=== PATIENT | female | born 1995 | race Caucasian/White ===

== ENCOUNTER 2017-01-31 17:32 | Emergency (ER) | payer BC, OTHER ==
[2017-01-31 17:44] VITALS: BP 128/87
--- NOTE | 2017-01-31 18:43 | EDM.PDOC ---
ED HPI GENERAL MEDICAL PROBLEM - General Chief Complaint: Lower Extremity Injury/Pain Stated Complaint: HURT ANKLE Time Seen by Provider: 01/31/17 17:40 Source of Information: Reports: Patient History Limitations: Reports: No Limitations - History of Present Illness INITIAL COMMENTS - FREE TEXT/NARRATIVE: The patient presents with right ankle pain. The pain started tonight at home after work. She does not remember a specific instance when she hurt her ankle. She was on her feet all day. About a year ago she sprained her ankle and had crutches and a walking boot. Onset: Sudden Duration: Hour(s): Location: Reports: Lower Extremity, Right (ankle) Quality: Reports: Sharp Severity: Moderate Improves with: Reports: Immobilization Worsens with: Reports: Movement Associated Symptoms: Reports: No Other Symptoms Right Ankle Pain Score (Numeric/FACES): 10 - Related Data Allergies Allergy/AdvReac Type Severity Reaction Status Date / Time No Known Allergies Allergy Verified 01/31/17 17:44 Home Meds: Home Meds FLUoxetine HCl [Prozac] 20 mg PO DAILY 08/09/15 [History] Hydrocodone/Acetaminophen [Hydrocodon-Acetaminophen 5-325] 1 - 2 each PO Q6HR PRN #20 tablet 01/31/17 [Rx] Past Medical History - Past Health History Medical/Surgical History: Denies Medical/Surgical History Social & Family History - Family History Family Medical History: Noncontributory - Tobacco Use Smoking Status *Q: Never Smoker Second Hand Smoke Exposure: No - Alcohol Use Days Per Week of Alcohol Use: 0 - Recreational Drug Use Recreational Drug Use: No Review of Systems - Review of Systems Review Of Systems: See Below Constitutional: Reports: No Symptoms Eyes: Reports: No Symptoms Ears: Reports: No Symptoms Nose: Reports: No Symptoms Mouth/Throat: Reports: No Symptoms Respiratory: Reports: No Symptoms Cardiovascular: Reports: No Symptoms GI/Abdominal: Reports: No Symptoms Genitourinary: Reports: No Symptoms Musculoskeletal: Reports: Other (Right ankle pain) ED EXAM, GENERAL - Physical Exam Exam: See Below Exam Limited By: No Limitations General Appearance: Alert, No Apparent Distress Ears: Normal External Exam Nose: Normal Inspection Head: Atraumatic, Normocephalic Neck: Normal Inspection Respiratory/Chest: No Respiratory Distress Extremities: Other (Pain upon palpation to the right ankle with mild edema. Good sensation and pulses distally.) Course - Vital Signs Last Recorded V/S: Last Vital Signs Temp 98.5 F 01/31/17 17:42 Pulse 102 H 01/31/17 17:42 Resp 18 01/31/17 17:42 BP 128/87 01/31/17 17:42 Pulse Ox 100 01/31/17 17:42 - Orders/Labs/Meds Orders: Active Orders 24 hr Category Date Time Status Ankle Min 3V Rt [CR] Stat Exams 01/31/17 17:48 Taken - Re-Assessments/Exams Free Text/Narrative Re-Assessment/Exam: 01/31/17 18:41 Her x-ray shows no fracture. She somehow sprained it. I will give her an parker wrap and something for pain. Departure - Departure Time of Disposition: 18:45 Disposition: Home, Self-Care 01 Condition: Good Clinical Impression: Right ankle sprain Qualifiers: Encounter type: initial encounter Involved ligament of ankle: unspecified ligament Qualified Code(s): S93.401A - Sprain of unspecified ligament of right ankle, initial encounter - Discharge Information Prescriptions: Hydrocodone/Acetaminophen [Hydrocodon-Acetaminophen 5-325] 1 - 2 each PO Q6HR PRN #20 tablet PRN Reason: Pain Referrals: Faby Pearson, MIRIAM [Primary Care Provider] - Merlin Lovett DO [Physician] - 1 Week Additional Instructions: Ice your ankle for 15 minutes every other hour while awake for 2 days. Elevate your ankle above your heart as much as you can for a couple days. Take motrin or aleve for the pain. You may also need some hydrocodone for pain. Please return if you are worse. Follow up with Dr Lovett in 1 week. - My Orders Last 24 Hours: My Active Orders 01/31/17 17:48 Ankle Min 3V Rt [CR] Stat - Assessment/Plan Last 24 Hours: My Active Orders 01/31/17 17:48 Ankle Min 3V Rt [CR] Stat
--- NOTE | 2017-02-02 07:59 | CR ---
Right ankle: Four portable views of the right ankle were obtained. Comparison: No prior foot exam or ankle exam. Ankle mortise is symmetric. Mild deformity of the distal fibula is seen which is felt compatible with old injury. Small bony density which is well-corticated and normal variant is seen off the dorsal navicular bone. No acute fracture or other abnormality is appreciated. Impression: 1. Incidental findings. No acute abnormality is appreciated on right ankle exam. Diagnostic code #1
== END 2017-01-31 19:08 | disposition home or self-care (01) ==
LOC: JD.ED 17:32
DX: S93.401A Sprain of unspecified ligament of right ankle, initial encounter (principal); Z79.899 Other long term (current) drug therapy; X58.XXXA Exposure to other specified factors, initial encounter
CPT/HCPCS: 73610-26-RT; 73610-RT; 99283

== ENCOUNTER 2017-02-17 17:46 | Emergency (ER) | payer BC ==
[2017-02-17 18:07] VITALS: BP 139/78
[2017-02-17] MEDS ORDERED: Sodium Chloride 0.9% 1,000 ML IV ONE (18:39)
--- NOTE | 2017-02-17 18:40 | EDM.PDOC ---
ED HPI GENERAL MEDICAL PROBLEM - General Chief Complaint: Abdominal Pain Stated Complaint: POSSIBLE APPENDICITIS PER PATIENT Time Seen by Provider: 02/17/17 18:40 Source of Information: Reports: Patient History Limitations: Reports: No Limitations - History of Present Illness INITIAL COMMENTS - FREE TEXT/NARRATIVE: 21 year old female presents for evaluation and treatment of abdominal pain. Patient reports the pain started today. States it came o gradually. Reports the pain is an 8/10 and is dull and achy in nature. Started in the umbilical area and moved to the right lower quadrant and now into the left lower quadrant and her right lower back. Reports pain is worse with movement and improves while laying flat. Denies any nausea or vomiting. No fevers but states she has felt warm. No dysuria or urinary symptoms. LMP was Jan. 3. Reports she typically has an irregular menstrual cycle/ Reports she has had diarrhea today, 4-5 episodes. Normally struggles with diarrhea and constipation. Has never been worked up for IBS. No melena or hematochezia. No previous surgeries to her abdomen. Last intake was at 16:30, she had dinner. Left Lower Abdomen Pain Score (Numeric/FACES): 8 - Related Data Allergies Allergy/AdvReac Type Severity Reaction Status Date / Time No Known Allergies Allergy Verified 02/17/17 17:56 Home Meds: Home Meds FLUoxetine HCl [Prozac] 20 mg PO DAILY 08/09/15 [History] Hydrocodone/Acetaminophen [Hydrocodon-Acetaminophen 5-325] 1 - 2 each PO Q6HR PRN #20 tablet 01/31/17 [Rx] Past Medical History - Past Health History Medical/Surgical History: Denies Medical/Surgical History HEENT History: Reports: Impaired Vision Respiratory History: Reports: Asthma Gastrointestinal History: Reports: Chronic Diarrhea 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 Social & Family History - Family History Family Medical History: Noncontributory Cardiac: Reports: CAD Endocrine/Metabolic: Reports: Diabetes, type II Oncologic: Reports: Breast, Cervix - Tobacco Use Smoking Status *Q: Former Smoker Used Tobacco, but Quit: Yes Month Tobacco Last Used: 2013 Second Hand Smoke Exposure: No - Caffeine Use Caffeine Use: Reports: Soda Other Caffeine Use: 2-4 cans a day - Alcohol Use Days Per Week of Alcohol Use: 0 - Recreational Drug Use Recreational Drug Use: No ED ROS GENERAL - Review of Systems Review Of Systems: See Below Constitutional: Denies: Fever (has felt warm), Decreased Appetite GI/Abdominal: Reports: Abdominal Pain (lower abdomen), Diarrhea (4-5 episode today), Vomiting. Denies: Decreased Appetite, Hematochezia, Melena, Nausea : Reports: Other (LMP 11--17). Denies: Dysuria Musculoskeletal: Reports: Back Pain (right low back) ED EXAM, GI/ABD - Physical Exam Exam: See Below Exam Limited By: No Limitations General Appearance: Alert, WD/WN, No Apparent Distress Throat/Mouth: Normal Inspection Respiratory/Chest: No Respiratory Distress, Lungs Clear, Normal Breath Sounds Cardiovascular: Normal Peripheral Pulses, Regular Rate, Rhythm, No Murmur GI/Abdominal Exam: Normal Bowel Sounds, Soft, Tender (+ mcburnies point tenderness), Other (reports pain with psosas and obturator testing). No: Rigid , Rebound Neurological: Alert, Oriented, Normal Cognition Psychiatric: Normal Affect, Normal Mood Skin Exam: Warm, Dry, Normal Color Course - Vital Signs Last Recorded V/S: Last Vital Signs Temp 36.5 C 02/17/17 17:59 Pulse 114 H 02/17/17 17:59 Resp 18 02/17/17 17:59 BP 139/78 02/17/17 17:59 Pulse Ox 99 02/17/17 17:59 Orthostatic Blood Pressure [ 116/71 Standing] Orthostatic Blood Pressure [ 118/78 Sitting] Orthostatic Blood Pressure [ 120/72 Supine] - Orders/Labs/Meds Labs: Laboratory Tests 02/17/17 02/17/17 02/17/17 Range/Units 18:39 18:39 18:39 WBC 11.89 H (3.98-10.04) K/mm3 RBC 4.90 (3.98-5.22) M/mm3 Hgb 14.8 (11.2-15.7) gm/L Hct 43.4 (34.1-44.9) % MCV 88.6 (79.4-94.8) fl MCH 30.2 (25.6-32.2) pg MCHC 34.1 (32.2-35.5) g/dl RDW Std Deviation 40.6 (36.4-46.3) fL Plt Count 327 (182-369) K/mm3 MPV 9.2 L (9.4-12.3) fl Neutrophils % (Manual) 73 H (40-60) % Band Neutrophils % 0 (0-10) % Lymphocytes % (Manual) 17 L (20-40) % Atypical Lymphs % 0 % Monocytes % (Manual) 8 (2-10) % Eosinophils % (Manual) 2 (0.7-5.8) % Basophils % (Manual) 0 L (0.1-1.2) Platelet Estimate Adequate Plt Morphology Comment Normal RBC Morph Comment Normal Sodium 137 (136-145) mEq/L Potassium 3.7 (3.5-5.1) mEq/L Chloride 105 (98-107) mEq/L Carbon Dioxide 25 (21-32) mEq/L Anion Gap 10.7 (5-15) BUN 8 (7-18) mg/dL Creatinine 0.8 (0.55-1.02) mg/dL Est Cr Clr Drug Dosing 79.23 mL/min Estimated GFR (MDRD) > 60 (>60) mL/min BUN/Creatinine Ratio 10.0 L (14-18) Glucose 114 H (74-106) mg/dL Calcium 9.8 (8.5-10.1) mg/dL Total Bilirubin 0.3 (0.2-1.0) mg/dL AST 17 (15-37) U/L ALT 34 (14-59) U/L Alkaline Phosphatase 72 (46-116) U/L C-Reactive Protein < 0.2 (<1.0) mg/dL Total Protein 7.8 (6.4-8.2) g/dl Albumin 3.7 (3.4-5.0) g/dl Globulin 4.1 gm/dL Albumin/Globulin Ratio 0.9 L (1-2) HCG, Qual Negative (NEGATIVE) Urine Color (Yellow) Urine Appearance (Clear) Urine pH (5.0-8.0) Ur Specific [place] (1.005-1.030) Urine Protein (Negative) Urine Glucose (UA) (Negative) Urine Ketones (Negative) Urine Occult Blood (Negative) Urine Nitrite (Negative) Urine Bilirubin (Negative) Urine Urobilinogen (0.2-1.0) Ur Leukocyte Esterase (Negative) Urine RBC (0-5) /hpf Urine WBC (0-5) /hpf Ur Epithelial Cells (0-5) /hpf Urine Bacteria (FEW) /hpf Urine Mucus (FEW) /hpf 02/17/17 Range/Units 18:51 WBC (3.98-10.04) K/mm3 RBC (3.98-5.22) M/mm3 Hgb (11.2-15.7) gm/L Hct (34.1-44.9) % MCV (79.4-94.8) fl MCH (25.6-32.2) pg MCHC (32.2-35.5) g/dl RDW Std Deviation (36.4-46.3) fL Plt Count (182-369) K/mm3 MPV (9.4-12.3) fl Neutrophils % (Manual) (40-60) % Band Neutrophils % (0-10) % Lymphocytes % (Manual) (20-40) % Atypical Lymphs % % Monocytes % (Manual) (2-10) % Eosinophils % (Manual) (0.7-5.8) % Basophils % (Manual) (0.1-1.2) Platelet Estimate Plt Morphology Comment RBC Morph Comment Sodium (136-145) mEq/L Potassium (3.5-5.1) mEq/L Chloride (98-107) mEq/L Carbon Dioxide (21-32) mEq/L Anion Gap (5-15) BUN (7-18) mg/dL Creatinine (0.55-1.02) mg/dL Est Cr Clr Drug Dosing mL/min Estimated GFR (MDRD) (>60) mL/min BUN/Creatinine Ratio (14-18) Glucose (74-106) mg/dL Calcium (8.5-10.1) mg/dL Total Bilirubin (0.2-1.0) mg/dL AST (15-37) U/L ALT (14-59) U/L Alkaline Phosphatase (46-116) U/L C-Reactive Protein (<1.0) mg/dL Total Protein (6.4-8.2) g/dl Albumin (3.4-5.0) g/dl Globulin gm/dL Albumin/Globulin Ratio (1-2) HCG, Qual (NEGATIVE) Urine Color Yellow (Yellow) Urine Appearance Clear (Clear) Urine pH 6.0 (5.0-8.0) Ur Specific [place] 1.010 (1.005-1.030) Urine Protein Negative (Negative) Urine Glucose (UA) Negative (Negative) Urine Ketones Negative (Negative) Urine Occult Blood Negative (Negative) Urine Nitrite Negative (Negative) Urine Bilirubin Negative (Negative) Urine Urobilinogen 0.2 (0.2-1.0) Ur Leukocyte Esterase Negative (Negative) Urine RBC 0-5 (0-5) /hpf Urine WBC 0-5 (0-5) /hpf Ur Epithelial Cells 0-5 (0-5) /hpf Urine Bacteria Not seen (FEW) /hpf Urine Mucus Not seen (FEW) /hpf Meds: Medications Discontinued Medications Generic Name Dose Route Start Last Admin Trade Name Freq PRN Reason Stop Dose Admin Diatrizoate Meglum/Diatrizoate Sod 90 ml 02/17/17 22:06 02/17/17 22:28 Gastrografin 37% PO 02/17/17 22:07 90 ml ONETIME ONE Administration Sodium Chloride 1,000 mls @ 999 mls/hr 02/17/17 18:39 02/17/17 19:03 Normal Saline IV 02/17/17 19:39 999 mls/hr ONETIME ONE Administration Iopamidol 125 ml 02/17/17 22:06 02/17/17 22:28 Isovue-300 (61%) IVPUSH 02/17/17 22:07 125 ml ONETIME ONE Administration Sodium Chloride 10 ml 02/17/17 18:39 02/17/17 22:29 Saline Flush FLUSH 10 ml ASDIRECTED PRN Administration Keep Vein Open - Radiology Interpretation Free Text/Narrative:: CT of the abdomen and pelvis without contrast impression per [facility]: NO acute findings - Re-Assessments/Exams Free Text/Narrative Re-Assessment/Exam: 02/17/17 19:57 Labs returned. HCG is negative. WBC is slightly elevated. Will obtain CT of the abdomen and pelvis to rule out appy. 02/17/17 23:[address] results with the patient. Abdominal pain is nearly resolved. Unclear etiology at this point, likely gas pains. Will discharge home with instructions to follow-up with PCP. Departure - Departure Time of Disposition: 23:06 Disposition: Home, Self-Care 01 Condition: Good Clinical Impression: Abdominal pain - Discharge Information Instructions: Abdominal Pain, Adult, [id number] Referrals: Faby Pearson PHYSICAL TRAINER [Primary Care Provider] - Forms: ED Department Discharge Additional Instructions: [id number] Tylenol or Motrin as needed for pain relief Recommend starting a probiotic. These are available [id number]. Drink clear fluids and a bland diet. You may advance to a normal diet as tolerated. Follow-up with your primary care provider in one week for recheck of your symptoms. Please return to the ER if your symptoms change or worsen.
[2017-02-17] MEDS: Sodium Chloride 0.9% 10 ML Syringe FLUSH PRN ×2 (19:03→22:29)
[2017-02-17] MEDS ORDERED: Diatrizoate Meglumine/Diatrizoate Sodium 37% 120 ML Bottle PO ONE (22:06)
[2017-02-17] MEDS ORDERED: Iopamidol 612 MG/ML 150 ML Bottle IVPUSH ONE (22:06)
--- NOTE | 2017-02-18 08:43 | CT ---
CT abdomen and pelvis Technique: Multiple axial sections were obtained from above the dome of the diaphragm inferiorly through the pubic symphysis. Intravenous and oral contrast was utilized. Delayed images were obtained to the bladder. Comparison: No prior abdomen or pelvis CT. Findings: Visualized lung bases show nothing acute. Liver shows no focal parenchymal abnormality. Gallbladder contains no calcified gallstones. Spleen appears within normal limits. Adrenal glands are unremarkable. Kidneys show symmetric contrast enhancement without hydronephrosis or mass. Pancreas is within normal limits. Aorta shows no aneurysmal dilatation. No retroperitoneal adenopathy or mesenteric abnormalities are seen. Appendix is seen which appears normal. No pelvic mass or adenopathy is seen. Small dominant follicle noted within the left ovary. No free fluid or inflammatory changes seen. Delayed images show contrast within the distal ureters and within the bladder. Bone window settings were reviewed which appear within normal limits for the patient's age. Impression: 1. No abnormality is identified on CT study of the abdomen and pelvis. Diagnostic code #1 Agree with preliminary report issued by [facility] ([facility] preliminary report dictated on 02/17/17, 11:45 PM Central Time)
== END 2017-02-17 23:13 | disposition home or self-care (01) ==
LOC: JD.ED 17:46
DX: R10.33 Periumbilical pain (principal); R10.32 Left lower quadrant pain; J45.909 Unspecified asthma, uncomplicated; Z87.891 Personal history of nicotine dependence
CPT/HCPCS: 36415; 74177; 80053; 81001; 84703; 85025; 86140; 96360; 99284; J7040; J7050; Q9963; Q9967

== ENCOUNTER 2017-08-24 19:04 | Emergency (ER) | payer SELFPAY ==
[2017-08-24] MEDS ORDERED: Penicillin V Potassium 500 MG Tab PO ONE (19:33)
--- NOTE | 2017-08-24 19:37 | EDM.PDOC ---
ED HPI GENERAL MEDICAL PROBLEM - General Chief Complaint: ENT Problem Stated Complaint: TOOTH PAIN POSSIBLE TMJ Time Seen by Provider: 08/24/17 19:25 Source of Information: Reports: Patient History Limitations: Reports: No Limitations - History of Present Illness INITIAL COMMENTS - FREE TEXT/NARRATIVE: Patient is a 21-year-old female presents ED complaining of right lower jaw pain. She states this started approximately a few days ago and has progressively gotten worse. Pain is worsened with chewing on affected side. She has a history of poor dentition and multiple fillings to teeth affected on that side. She denies any swelling, fever, nausea vomiting, difficulty swallowing, sore throat, or any additional complaints. 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 ED EXAM, ENT - Physical Exam Exam: See Below Exam Limited By: No Limitations General Appearance: Alert, WD/WN, No Apparent Distress Ears: Hearing Grossly Normal Nose: Normal Inspection Mouth/Throat: Normal Oropharynx, Dental Tenderness, Other (poor dentition throughout. She has no gumline swelling to the 30-32 teeth. Pain with palpation along the lateral border of the affected teeth. No swelling to face noted. ). No: Dental Trauma, Drooling, Dry Mucous Membrane, Muffled Voice, Pharyngeal Erythema, Trismus, Uvular Deviation Head: Atraumatic, Normocephalic Neck: Normal Inspection, Supple Respiratory/Chest: No Respiratory Distress, Lungs Clear, Normal Breath Sounds, No Accessory Muscle Use, Chest Non-Tender Cardiovascular: Normal Peripheral Pulses, Regular Rate, Rhythm Extremities: Normal Inspection Neurological: Alert, Oriented, CN II-XII Intact, Normal Cognition, No Motor/ Sensory Deficits Psychiatric: Normal Affect, Normal Mood Skin: Warm, Dry, Intact, Normal Color, No Rash Course - Vital Signs Last Recorded V/S: Last Vital Signs Temp 97.3 F 08/24/17 19:50 Pulse 78 08/24/17 19:50 Resp 16 08/24/17 19:50 BP 122/76 08/24/17 19:50 Pulse Ox 100 08/24/17 19:50 - Orders/Labs/Meds Meds: Medications Discontinued Medications Generic Name Dose Route Start Last Admin Trade Name Joao PRN Reason Stop Dose Admin Penicillin V Potassium 500 mg 08/24/17 19:33 08/24/17 19:43 Veetids PO 08/24/17 19:34 500 mg ONETIME ONE Administration - Re-Assessments/Exams Free Text/Narrative Re-Assessment/Exam: Pain noted along the right lower outer gum line with no abscess present. Due to poor dentition suspect she has a brewing infection. Ordered pen vk 500mg PO. Discharge instructions as documented. Departure - Departure Time of Disposition: 19:35 Disposition: Home, Self-Care 01 Condition: Good Clinical Impression: Dental infection, Dental caries - Discharge Information Prescriptions: Penicillin V Potassium [Veetids] 500 mg PO Q6H #40 tab Instructions: Dental Abscess, [id number] Referrals: Faby Pearson, MANAGER REGISTRATION [Primary Care Provider] - Forms: ED Department Discharge Additional Instructions: Take the full course of the antibiotic as prescribed. Utilize tylenol and ibuprofen in alternating fashion for pain. Make an appt with Dentist for definitive therapy. Return to the E.D. if you develop any new or worsening symptoms.
[2017-08-24 19:54] VITALS: BP 122/76
== END 2017-08-24 19:52 | disposition home or self-care (01) ==
LOC: JD.ED 19:04
DX: K04.7 Periapical abscess without sinus (principal); K02.9 Dental caries, unspecified; F41.9 Anxiety disorder, unspecified; F32.9 Major depressive disorder, single episode, unspecified; Z87.891 Personal history of nicotine dependence
CPT/HCPCS: 99283; A9270

== ENCOUNTER 2019-11-09 18:58 | Emergency (ER) | payer MEDICAID ==
[2019-11-09 19:13] VITALS: BP 120/84; PULSE 89
[2019-11-09] MEDS ORDERED: Sodium Chloride 0.9% 10 ML Syringe FLUSH PRN (19:34)
[2019-11-09] MEDS ORDERED: Sodium Chloride 0.9% 1,000 ML IV STA (19:34)
[2019-11-09] MEDS ORDERED: Ondansetron 4 MG/2 ML SDV IVPUSH ONE (19:34)
[2019-11-09] MEDS ORDERED: HYDROmorphone 1 MG/ML Syringe IVPUSH ONE (19:35)
--- NOTE | 2019-11-09 20:50 | EDM.PDOC ---
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 She said she has also gained weight. She was sent over from the walk in clinic. She denies being . She says she has not had intercourse for a month. She has no fever, chills, cough, congestion, runny nose, chest pain or shortness of breath. She does have pain in her lower abdomen and pelvis. She has no vaginal discharge or bleeding. She is . She says she has not had a period in over a year. Onset: Gradual Duration: Week(s): (4) Location: Reports: Abdomen, Pelvis Quality: Reports: Sharp Severity: Moderate Improves with: Reports: None Worsens with: Reports: None Associated Symptoms: Reports: No Other Symptoms Pelvic Pain Score (Numeric/FACES): 8 - Related Data Allergies Allergy/AdvReac Type Severity Reaction Status Date / Time No Known Allergies Allergy Verified 11/09/19 19:13 Home Meds: Home Meds . 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 Cardiovascular Surgical History: Reports: None GI Surgical History: Reports: None Social & Family History - Family History Family Medical History: Noncontributory Cardiac: Reports: CAD Endocrine/Metabolic: Reports: Diabetes, type II Oncologic: Reports: Breast, Cervix - Tobacco Use Smoking Status *Q: Never Smoker - Caffeine Use Caffeine Use: Reports: Soda Other Caffeine Use: 2-4 cans a day ED ROS GENERAL - Review of Systems Review Of Systems: See Below Constitutional: Reports: No Symptoms HEENT: Reports: No Symptoms Respiratory: Reports: No Symptoms Cardiovascular: Reports: No Symptoms Endocrine: Reports: No Symptoms GI/Abdominal: Reports: Abdominal Pain : Reports: Other (Pelvic pain) Musculoskeletal: Reports: No Symptoms ED EXAM, GI/ABD - Physical Exam Exam: See Below Exam Limited By: No Limitations General Appearance: Alert, No Apparent Distress Ears: Normal External Exam Nose: Normal Inspection Head: Atraumatic, Normocephalic Neck: Normal Inspection Respiratory/Chest: No Respiratory Distress, Lungs Clear, Normal Breath Sounds Cardiovascular: Regular Rate, Rhythm, No Edema, No Murmur GI/Abdominal Exam: Soft, Other (Mass noted in the abdomen). No: Tender Course - Vital Signs Last Recorded V/S: Last Vital Signs Temp 97.8 F 11/09/19 19:11 Pulse 89 11/09/19 19:11 Resp 16 11/09/19 19:11 BP 120/84 11/09/19 19:11 Pulse Ox 97 11/09/19 19:11 - Orders/Labs/Meds Orders: Active Orders 24 hr Category Date Time Status Peripheral IV Care [RC] . DIRECTED Care 11/09/19 19:34 Active COMPREHENSIVE METABOLIC PN,CMP [CHEM] Stat Lab 11/09/19 19:45 Results LIPASE [CHEM] Stat Lab 11/09/19 19:45 Results Sodium Chloride 0.9% [Saline Flush] Med 11/09/19 19:34 Active 10 ml FLUSH ASDIRECTED PRN ED Antiemetic Medication Reflex [OM.PC] Stat Oth 11/09/19 19:34 Ordered Peripheral IV Insertion Adult [OM.PC] Stat Oth 11/09/19 19:34 Ordered Medication Orders Sodium Chloride (Saline Flush) 10 ml FLUSH ASDIRECTED PRN PRN Reason: Keep Vein Open Last Admin: 11/09/19 19:49 Dose: 10 ml Documented by: ALEX Labs: Laboratory Tests 11/09/19 11/09/19 11/09/19 Range/Units 19:45 19:45 19:45 WBC 9.66 (3.98-10.04) K/mm3 RBC 3.72 L (3.98-5.22) M/mm3 Hgb 10.4 L D (11.2-15.7) gm/dl Hct 33.0 L (34.1-44.9) % MCV 88.7 (79.4-94.8) fl MCH 28.0 (25.6-32.2) pg MCHC 31.5 L (32.2-35.5) g/dl RDW Std Deviation 45.7 (36.4-46.3) fL Plt Count 241 D (182-369) K/mm3 MPV 8.9 L (9.4-12.3) fl Neut % (Auto) 79.5 H (34.0-71.1) % Lymph % (Auto) 10.6 L (19.3-51.7) % [place] % (Auto) 9.5 (4.7-12.5) % Eos % (Auto) 0.2 L (0.7-5.8) Baso % (Auto) 0.1 (0.1-1.2) % Neut # (Auto) 7.68 H (1.56-6.13) K/mm3 Lymph # (Auto) 1.02 L (1.18-3.74) K/mm3 [place] # (Auto) 0.92 H (0.24-0.36) K/mm3 Eos # (Auto) 0.02 L (0.04-0.36) K/mm3 Baso # (Auto) 0.01 (0.01-0.08) K/mm3 Sodium 136 (136-145) mEq/L Potassium 3.5 (3.5-5.1) mEq/L Chloride 104 (98-107) mEq/L Carbon Dioxide 19 L (21-32) mEq/L Anion Gap 16.5 H (5-15) BUN 10 (7-18) mg/dL Creatinine 0.7 (0.55-1.02) mg/dL Est Cr Clr Drug Dosing 92.71 mL/min Estimated GFR (MDRD) > 60 (>60) mL/min BUN/Creatinine Ratio 14.3 (14-18) Glucose 79 (74-106) mg/dL Calcium 8.5 (8.5-10.1) mg/dL Total Bilirubin 0.4 (0.2-1.0) mg/dL AST 10 L (15-37) U/L ALT 9 L (14-59) U/L Alkaline Phosphatase 143 H (46-116) U/L Total Protein 6.8 (6.4-8.2) g/dl Albumin 2.4 L (3.4-5.0) g/dl Globulin 4.4 gm/dL Albumin/Globulin Ratio 0.6 L (1-2) HCG, Qual Positive H (NEGATIVE) Urine Color (Yellow) Urine Appearance (Clear) Urine pH (5.0-8.0) Ur Specific [place] (1.005-1.030) Urine Protein (Negative) Urine Glucose (UA) (Negative) Urine Ketones (Negative) Urine Occult Blood (Negative) Urine Nitrite (Negative) Urine Bilirubin (Negative) Urine Urobilinogen (0.2-1.0) Ur Leukocyte Esterase (Negative) Urine RBC (0-5) /hpf Urine WBC (0-5) /hpf Ur Squamous Epith Cells (0-5) /hpf Urine Bacteria (FEW) /hpf Urine Mucus (FEW) /hpf 11/09/19 Range/Units 19:46 WBC (3.98-10.04) K/mm3 RBC (3.98-5.22) M/mm3 Hgb (11.2-15.7) gm/dl Hct (34.1-44.9) % MCV (79.4-94.8) fl MCH (25.6-32.2) pg MCHC (32.2-35.5) g/dl RDW Std Deviation (36.4-46.3) fL Plt Count (182-369) K/mm3 MPV (9.4-12.3) fl Neut % (Auto) (34.0-71.1) % Lymph % (Auto) (19.3-51.7) % [place] % (Auto) (4.7-12.5) % Eos % (Auto) (0.7-5.8) Baso % (Auto) (0.1-1.2) % Neut # (Auto) (1.56-6.13) K/mm3 Lymph # (Auto) (1.18-3.74) K/mm3 [place] # (Auto) (0.24-0.36) K/mm3 Eos # (Auto) (0.04-0.36) K/mm3 Baso # (Auto) (0.01-0.08) K/mm3 Sodium (136-145) mEq/L Potassium (3.5-5.1) mEq/L Chloride (98-107) mEq/L Carbon Dioxide (21-32) mEq/L Anion Gap (5-15) BUN (7-18) mg/dL Creatinine (0.55-1.02) mg/dL Est Cr Clr Drug Dosing mL/min Estimated GFR (MDRD) (>60) mL/min BUN/Creatinine Ratio (14-18) Glucose (74-106) mg/dL Calcium (8.5-10.1) mg/dL Total Bilirubin (0.2-1.0) mg/dL AST (15-37) U/L ALT (14-59) U/L Alkaline Phosphatase (46-116) U/L Total Protein (6.4-8.2) g/dl Albumin (3.4-5.0) g/dl Globulin gm/dL Albumin/Globulin Ratio (1-2) HCG, Qual (NEGATIVE) Urine Color Light yellow (Yellow) Urine Appearance Clear (Clear) Urine pH 7.0 (5.0-8.0) Ur Specific [place] 1.015 (1.005-1.030) Urine Protein Negative (Negative) Urine Glucose (UA) Negative (Negative) Urine Ketones Negative (Negative) Urine Occult Blood Negative (Negative) Urine Nitrite Negative (Negative) Urine Bilirubin Negative (Negative) Urine Urobilinogen 0.2 (0.2-1.0) Ur Leukocyte Esterase Trace H (Negative) Urine RBC 0-5 (0-5) /hpf Urine WBC 5-10 H (0-5) /hpf Ur Squamous Epith Cells 20-30 H (0-5) /hpf Urine Bacteria Rare (FEW) /hpf Urine Mucus Not seen (FEW) /hpf Meds: Medications Generic Name Dose Route Start Last Admin Trade Name Freq PRN Reason Stop Dose Admin Sodium Chloride 10 ml 11/09/19 19:34 11/09/19 19:49 Saline Flush FLUSH 10 ml ASDIRECTED PRN Administration Keep Vein Open Discontinued Medications Generic Name Dose Route Start Last Admin Trade Name Freq PRN Reason Stop Dose Admin Hydromorphone HCl 1 mg 11/09/19 19:35 11/09/19 19:48 Dilaudid IVPUSH 11/09/19 19:36 1 mg ONETIME ONE Administration Sodium Chloride 1,000 mls @ 1,000 mls/hr 11/09/19 19:34 11/09/19 19:47 Normal Saline IV 11/09/19 20:33 1,000 mls/hr .BOLUS STA Administration Ondansetron HCl 4 mg 11/09/19 19:34 11/09/19 19:47 Zofran IVPUSH 11/09/19 19:35 4 mg ONETIME ONE Administration - Re-Assessments/Exams Free Text/Narrative Re-Assessment/Exam: 11/09/19 20:49 I ordered an IV NS 1L bolus, dilaudid 1mg IV, labs, UA and an US. Her Hgb was a little low at 10.4. Her alk phos was elevated at 143. Her HCG was positive. The [employer] tech came to tell me she will need the change the order for the US. The patient is 36 weeks gestation with a heart rate of 126. I called Dr Gunter and she would like to see the patient tomorrow. Her office will contact her. Departure - Departure Time of Disposition: 21:15 Disposition: Home, Self-Care 01 Condition: Good Clinical Impression: Qualifiers: Weeks of gestation: 36 weeks Qualified Code(s): Z3A.36 - 36 weeks gestation of - Discharge Information *PRESCRIPTION DRUG MONITORING PROGRAM REVIEWED*: Not Applicable *COPY OF PRESCRIPTION DRUG MONITORING REPORT IN PATIENT GEOFFREY: Not Applicable Referrals: Thi Cee PA-C [Primary Care Provider] - Mona Gunter MD [Physician] - 1 Day Forms: ED Department Discharge Additional Instructions: Follow up with Dr Gunter tomorrow. If you do not hear from her office by noon, call her office. Please return if you have more pain or any vaginal discharge or bleeding. Sepsis Event Note (ED) - Evaluation Sepsis Screening Result: No Definite Risk - Focused Exam Vital Signs: Vital Signs Temp Pulse Resp BP Pulse Ox 11/09/19 19:11 97.8 F 89 16 120/84 97 - My Orders Last 24 Hours: My Active Orders 11/09/19 19:34 Peripheral IV Care [RC] . DIRECTED Sodium Chloride 0.9% [Saline Flush] 10 ml FLUSH ASDIRECTED PRN ED Antiemetic Medication Reflex [OM.PC] Stat Peripheral IV Insertion Adult [OM.PC] Stat 11/09/19 19:45 COMPREHENSIVE METABOLIC PN,CMP [CHEM] Stat LIPASE [CHEM] Stat - Assessment/Plan Last 24 Hours: My Active Orders 11/09/19 19:34 Peripheral IV Care [RC] . DIRECTED Sodium Chloride 0.9% [Saline Flush] 10 ml FLUSH ASDIRECTED PRN ED Antiemetic Medication Reflex [OM.PC] Stat Peripheral IV Insertion Adult [OM.PC] Stat 11/09/19 19:45 COMPREHENSIVE METABOLIC PN,CMP [CHEM] Stat LIPASE [CHEM] Stat
--- NOTE | 2019-11-09 21:03 | US ---
Limited obstetrical ultrasound: Multiple real-time images were obtained transabdominally. Comparison: No previous study for current is available. Findings: Dates: Current ultrasound: [facility] 12/01/19, gestational age 36 weeks 6 days presentation: Cephalic Placenta: Fundal and anterior with no findings of placenta previa Amniotic fluid: LINNEA 10.83 cm Measurements: BPD: 9.13 cm - 37 weeks 0 days Head circumference: 32.50 cm - 36 weeks 6 days Abdominal circumference: 32.84 cm - 36 weeks 5 days Femur length: 7.20 cm - 36 weeks 6 days Estimated weight: 3040 g (6 lbs. 11 oz.) Heart rate: 126 BPM Cervical length: 2.94 cm Impression: 1. Single intrauterine fetus currently cephalic in presentation. Dates as noted above. 2. No complicating abnormality is appreciated on this ultrasound exam. Note made that this was not an anatomic study. Diagnostic code #1 Study was dictated in MDT
== END 2019-11-09 21:23 | disposition home or self-care (01) ==
LOC: JD.ED 18:58
DX: O99.89 Other specified diseases and conditions complicating pregnancy, childbirth and the puerperium (principal); R10.2 Pelvic and perineal pain; O99.513 Diseases of the respiratory system complicating pregnancy, third trimester; J45.909 Unspecified asthma, uncomplicated; Z3A.36 36 weeks gestation of pregnancy
CPT/HCPCS: 36415; 76815; 80053; 81001; 83690; 84703; 85025; 96361; 96374; 96375; 99284; J1170; J2405; J7030

== ENCOUNTER 2019-11-10 01:15 | Inpatient (IN) | payer MEDICAID ==
[2019-11-10] MEDS ORDERED: Ondansetron 4 MG/2 ML SDV IVPUSH PRN (01:36)
[2019-11-10] MEDS ORDERED: Lidocaine 1% 50 ML MDV INJECT ONE (01:36)
[2019-11-10] MEDS ORDERED: Sodium Chloride 0.9% 10 ML Syringe FLUSH PRN (01:36)
[2019-11-10] MEDS ORDERED: Acetaminophen 325 MG Tab PO PRN ×2 (01:36→06:48)
[2019-11-10] MEDS ORDERED: Calcium Carbonate 500 MG Tab.Chew PO PRN (01:36)
[2019-11-10] MEDS ORDERED: Nalbuphine 10 MG/ML Syringe IVPUSH PRN (01:36)
[2019-11-10] MEDS ORDERED: Ampicillin 2 GM AdvVial IV ONE (01:45)
[2019-11-10] MEDS ORDERED: Lactated Ringers 1,000 ML IV SCH (01:45)
[2019-11-10] MEDS ORDERED: Oxytocin/Lactated Ringers 10 UNIT/1,000 ML BAG IV SCH (01:45)
[2019-11-10] MEDS ORDERED: Ampicillin 1 GM Vial IV STA (01:47)
[2019-11-10] MEDS ORDERED: Oxytocin 10 Units/1 ML SDV ONE (02:36)
--- NOTE | 2019-11-10 02:40 | PCM.LDHP ---
L&D History of Present Illness - General Date of Service: 11/10/19 Admit Problem/Dx: Patient Status Order with Admit Dx/Problem 11/10/19 01:36 Patient Status [ADT] Routine Admission Diagnosis/Problem Admission Diagnosis/Problem Source of Information: Patient History Limitations: Reports: No Limitations - History of Present Illness Introduction:: Patient is a 24-year-old at 37-0/7 weeks by ultrasound done yesterday who presents for concerns of labor. Patient seen in the emergency department yesterday complaining of pelvic pressure for a month. Did not think she was . Ultrasound done yesterday showed her to be 36 weeks and 6 days. She was supposed to follow-up in clinic today, but sometime after discharge from the ER she started to notice painful contractions. Exam her water broke while si tting bathtub at home. States that her last was notable for growth restriction for which she was induced at 39 weeks. Those delivery notes are available in [facility] as delivery occurred in [place]. She reports having routine care with that . Again had no care up until yesterday in the emergency department for this - Related Data Allergies/Adverse Reactions: Allergies Allergy/AdvReac Type Severity Reaction Status Date / Time No Known Allergies Allergy Verified 11/09/19 19:13 Home Medications: Home Meds . 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 Respiratory History: Reports: Asthma FISHER LAMPARA NET History: Reports: : 2 Para: 1 LMP (Approximate): Psychiatric History: Reports: Anxiety, Depression - Past Surgical History Other Surgical History Comment: No surgical history Social & Family History - Family History Family Medical History: Noncontributory Cardiac: Reports: CAD Endocrine/Metabolic: Reports: Diabetes, type II Oncologic: Reports: Breast, Cervix - Tobacco Use Smoking Status *Q: Never Smoker - Caffeine Use Caffeine Use: Reports: Soda Other Caffeine Use: 2-4 cans a day - Alcohol Use Alcohol Use History: No - Recreational Drug Use Recreational Drug Use: No H&P Review of Systems - Review of Systems: Review Of Systems: See Below General: Reports: No Symptoms Pulmonary: Reports: No Symptoms Cardiovascular: Reports: No Symptoms Gastrointestinal: Reports: Abdominal Pain Genitourinary: Reports: No Symptoms Musculoskeletal: Reports: No Symptoms Psychiatric: Reports: No Symptoms Neurological: Reports: No Symptoms L&D Exam - Exam Exam: See Below - OB Specific Contraction Intensity: Strong Movement: Active Heart Tones: Present Heart Tones per Min: 120 Heart Rate (FHR) Variability: Moderate (6-25 bmp) Presentation: Vertex - Goncalves Score Goncalves Score Cervix Position: Anterior Goncalves Score Consistency: Soft Goncalves Score Effacement: >80% Goncalves Score Dilation: > 5 cm (Patient complete and +1 station on initial exam) Goncalves Score 's Station: +1, +2 Goncalves Score Total: 13 - Exam General: Alert, Oriented, Cooperative Lungs: Clear to Auscultation, Normal Respiratory Effort Cardiovascular: Regular Rate, Regular Rhythm GI/Abdominal Exam: Soft, Non-Tender Genitourinary: Normal external exam Extremities: Normal Inspection Skin: Warm, Dry, Intact - Patient Data Lab Results Last 24 hrs: Laboratory Results - last 24 hr 11/10/19 11/10/19 Range/Units 01:53 02:00 WBC 12.29 H (3.98-10.04) K/mm3 RBC 3.90 L (3.98-5.22) M/mm3 Hgb 11.0 L (11.2-15.7) gm/dl Hct 34.4 (34.1-44.9) % MCV 88.2 (79.4-94.8) fl MCH 28.2 (25.6-32.2) pg MCHC 32.0 L (32.2-35.5) g/dl RDW Std Deviation 45.9 (36.4-46.3) fL Plt Count 232 (182-369) K/mm3 MPV 8.9 L (9.4-12.3) fl Neut % (Auto) 80.4 H (34.0-71.1) % Lymph % (Auto) 11.9 L (19.3-51.7) % [place] % (Auto) 7.4 (4.7-12.5) % Eos % (Auto) 0 L (0.7-5.8) Baso % (Auto) 0.1 (0.1-1.2) % Neut # (Auto) 9.89 H (1.56-6.13) K/mm3 Lymph # (Auto) 1.46 (1.18-3.74) K/mm3 [place] # (Auto) 0.91 H (0.24-0.36) K/mm3 Eos # (Auto) 0.00 L (0.04-0.36) K/mm3 Baso # (Auto) 0.01 (0.01-0.08) K/mm3 COVID-19 (RAFAEL) Negative (NEGATIVE) Result Diagrams: 11/10/19 01:53 - Problem List (1) No care in current SNOMED Code(s): 508880864 ICD Code: O09.30 - SUPRVSN OF PREG W INSUFFICIENT ANTENAT CARE, UNSP TRIMESTER Status: Acute Current Visit: Yes (2) Normal labor SNOMED Code(s): 50336549 ICD Code: O80 - ENCOUNTER FOR FULL-TERM UNCOMPLICATED DELIVERY; Z37.9 - OUTCOME OF DELIVERY, UNSPECIFIED Status: Acute Current Visit: Yes Problem List Initiated/Reviewed/Updated: Yes Orders Last 24hrs: Active Orders 24 hr Category Date Time Status Patient Status [ADT] Routine ADT 11/10/19 01:36 Active Activity as Tolerated [RC] PFP Care 11/10/19 01:36 Active Communication Order [RC] ASDIRECTED Care 11/10/19 01:36 Active Heart Tones [RC] ASDIRECTED Care 11/10/19 01:37 Active Non Stress Test [RC] PER UNIT ROUTINE Care 11/10/19 01:36 Active Notify Provider [RC] PFP Care 11/10/19 01:36 Active Notify Provider [RC] PRN Care 11/10/19 01:36 Active Peripheral IV Care [RC] . DIRECTED Care 11/10/19 01:37 Active Vital Signs [RC] PER UNIT ROUTINE Care 11/10/19 01:36 Active Regular Diet [DIET] Diet 11/10/19 Breakfast Active GROUP B STREP BY PCR [MOLEC] Stat Lab 11/10/19 01:59 Ordered HEPATITIS B SURFACE AG [CHEM] Routine Lab 11/10/19 01:53 Received HIV RAPID SCREEN RLFX COMFIRM [CHEM] Routine Lab 11/10/19 01:53 Received RAPID PLASMA REAGIN,RPR [CHEM] Routine Lab 11/10/19 01:53 Received RUBELLA ANTIBODY IGG [CHEM] Stat Lab 11/10/19 01:53 Received TYPE AND SCREEN [BBK] Routine Lab 11/10/19 01:53 Received Acetaminophen [TylenoL] Med 11/10/19 01:36 Active 650 mg PO Q4H PRN Ampicillin Med 11/10/19 01:47 Stat 200 gm IV NOW STA Calcium Carbonate [Tums] Med 11/10/19 01:36 Active 1,000 mg PO Q2H PRN Lactated Ringers [Ringers, Lactated] 1,000 ml Med 11/10/19 01:45 Active IV ASDIRECTED Nalbuphine [Nubain] Med 11/10/19 01:36 Active 10 mg IVPUSH Q2H PRN Ondansetron [Zofran] Med 11/10/19 01:36 Active 4 mg IVPUSH Q4H PRN Oxytocin/Lactated Ringers [Pitocin in LR 10 Units/1,000 Med 11/10/19 01:45 Active ML] 10 unit in 1,000 ml IV .CONTINUOUS Sodium Chloride 0.9% [Saline Flush] Med 11/10/19 01:36 Active 10 ml FLUSH ASDIRECTED PRN Electronic Heart Tones Ext w TOCO [WOMSER] Oth 11/10/19 01:36 Ordered Routine Electronic Heart Tones Internal [WOMSER] Per Unit Oth 11/10/19 01:36 Ordered Routine Peripheral IV Insertion Adult [OM.PC] Routine Oth 11/10/19 01:36 Ordered Resuscitation Status Routine Resus Stat 11/10/19 01:36 Ordered Medication Orders Acetaminophen (Tylenol) 650 mg PO Q4H PRN PRN Reason: Pain (Mild 1-3) and fever Ampicillin Sodium (Ampicillin) 200 gm IV NOW STA Stop: 11/10/19 01:48 Calcium Carbonate/Glycine (Tums) 1,000 mg PO Q2H PRN PRN Reason: Indigestion Oxytocin/Lactated Ringer's (Pitocin In Lr 10 Units/1,000 Ml) 10 unit in 1,000 mls @ 500 mls/hr IV .CONTINUOUS LOUIE Lactated Ringer's (Ringers, Lactated) 1,000 mls @ 100 mls/hr IV ASDIRECTED LOUIE Nalbuphine HCl (Nubain) 10 mg IVPUSH Q2H PRN PRN Reason: Pain Ondansetron HCl (Zofran) 4 mg IVPUSH Q4H PRN PRN Reason: Nausea/Vomiting Sodium Chloride (Saline Flush) 10 ml FLUSH ASDIRECTED PRN PRN Reason: Keep Vein Open Assessment/Plan Comment:: * Labs including all routine labs to be done * GBS unknown and uncertain gestational age and only had US yesterday. Will give Ampicillin * Already complete. Will plan unmedicated delivery * Anticipate * SW following delivery
[2019-11-10] MEDS ORDERED: Oxytocin 10 Units/1 ML SDV IM ONE (02:41)
--- NOTE | 2019-11-10 02:41 | PCM.DEL ---
L & D Note - General Info Date of Service: 11/10/19 - Delivery Note Labor: Spontaneous Delivery Outcome: Livebirth Delivery Method: Spontaneous Vaginal Delivery-Single Delivery Mode: Spontaneous Presentation: Right Occiput Anterior (ANTONIO) Nuchal Cord: None Anesthesia Type: None Amniotic Fluid Description: Clear Episiotomy Type: None Laceration: None Placenta: Intact, Spontaneous Cord: 3 Vessels Estimated Blood Loss: 100 : Bulb Syringe, Stimulated, Warmed, [place] Used, Warmer Used Delivery Comments (Free Text/Narrative):: Patient found to be complete and began pushing. With maternal pushing effort head delivered from an ANTONIO presentation. No nuchal cord present. With gentle downward traction shoulders and body delivered. Infant placed on maternal abdomen. Cord clamped and cut. Cord blood obtained. Placenta allowed time to separate and expelled intact. Inspection of the perineum showed no lacerations - General Info Date of Service: 11/10/19 - Problem List & Annotations (1) No care in current SNOMED Code(s): 532739799 Code(s): O09.30 - SUPRVSN OF PREG W INSUFFICIENT ANTENAT CARE, UNSP TRIMESTER Status: Acute Current Visit: Yes Qualifiers: Trimester: third trimester Qualified Code(s): O09.33 - Supervision of with insufficient care, third trimester (2) Vaginal delivery SNOMED Code(s): 420731553 Code(s): O80 - ENCOUNTER FOR FULL-TERM UNCOMPLICATED DELIVERY Status: Acute Current Visit: No - Problem List Review Problem List Initiated/Reviewed/Updated: Yes - My Orders Last 24 Hours: My Active Orders 11/10/19 01:36 Patient Status [ADT] Routine Activity as Tolerated [RC] PFP Communication Order [RC] ASDIRECTED Non Stress Test [RC] PER UNIT ROUTINE Notify Provider [RC] PFP Notify Provider [RC] PRN Vital Signs [RC] PER UNIT ROUTINE Acetaminophen [TylenoL] 650 mg PO Q4H PRN Calcium Carbonate [Tums] 1,000 mg PO Q2H PRN Nalbuphine [Nubain] 10 mg IVPUSH Q2H PRN Ondansetron [Zofran] 4 mg IVPUSH Q4H PRN Sodium Chloride 0.9% [Saline Flush] 10 ml FLUSH ASDIRECTED PRN Electronic Heart Tones Ext w TOCO [WOMSER] Routine Electronic Heart Tones Internal [WOMSER] Per Unit Routine Peripheral IV Insertion Adult [OM.PC] Routine Resuscitation Status Routine 11/10/19 01:37 Heart Tones [RC] ASDIRECTED Peripheral IV Care [RC] . DIRECTED 11/10/19 01:45 Lactated Ringers [Ringers, Lactated] 1,000 ml IV ASDIRECTED Oxytocin/Lactated Ringers [Pitocin in LR 10 Units/1,000 ML] 10 unit in 1,000 ml IV .CONTINUOUS 11/10/19 01:47 Ampicillin 200 gm IV NOW STA 11/10/19 01:53 HEPATITIS B SURFACE AG [CHEM] Routine HIV RAPID SCREEN RLFX COMFIRM [CHEM] Routine RAPID PLASMA REAGIN,RPR [CHEM] Routine RUBELLA ANTIBODY IGG [CHEM] Stat TYPE AND SCREEN [BBK] Routine 11/10/19 01:59 GROUP B STREP BY PCR [MOLEC] Stat 11/10/19 Breakfast Regular Diet [DIET] - Assessment Assessment:: PPD#0 - Plan Plan:: * Routine cares * Breast feeding * Will assess labs once all return * Discharge home in 2 days
[2019-11-10] MEDS ORDERED: Methylergonovine 0.2 MG/1 ML Amp IM PRN (03:09)
[2019-11-10] MEDS ORDERED: Benzocaine/Menthol 20%-0.5% Spray 56 GM Canister TOP PRN (06:48)
[2019-11-10] MEDS ORDERED: Witch Hazel Medicated Pads 40/Jar TOP PRN (06:48)
[2019-11-10] MEDS ORDERED: Docusate Sodium 100 MG Cap PO PRN (06:48)
[2019-11-10] MEDS: Ibuprofen 600 MG Tab PO PRN ×2 (14:13→19:56)
--- NOTE | 2019-11-11 06:51 | PCM.PNPP ---
- General Info Date of Service: 11/11/19 Functional Status: Reports: Pain Controlled, Tolerating Diet, Ambulating, Urinating - Review of Systems General: Reports: No Symptoms Pulmonary: Reports: No Symptoms Cardiovascular: Reports: No Symptoms Gastrointestinal: Reports: No Symptoms Genitourinary: Reports: No Symptoms Musculoskeletal: Reports: No Symptoms Neurological: Reports: No Symptoms - Patient Data Vital Signs - Most Recent: Last Vital Signs Temp 36.6 C 11/11/19 03:17 Pulse 82 11/11/19 03:17 Resp 15 11/11/19 03:17 BP 111/59 L 11/11/19 03:17 Pulse Ox 99 11/11/19 03:17 Weight - Most Recent: 66.224 kg I&O - Last 24 Hours: Intake & Output 11/10/19 11/10/19 11/11/19 14:59 22:59 06:59 Intake Total 420 Balance 420 Lab Results - Last 24 Hours: Laboratory Results - last 24 hr 11/10/19 Range/Units 01:53 RPR Non-reactive (NONREACTIVE) Med Orders - Current: Current Medications Acetaminophen (Tylenol) 650 mg PO Q4H PRN PRN Reason: mild pain or fever Benzocaine/Menthol (Dermoplast Pain Relief [place]) 0 gm TOP ASDIRECTED PRN PRN Reason: Perineal Comfort Measure Docusate Sodium (Colace) 100 mg PO BID PRN PRN Reason: Constipation Ibuprofen (Motrin) 600 mg PO Q6H PRN PRN Reason: Mild pain or fever Last Admin: 11/10/19 19:56 Dose: 600 mg Documented by: Methylergonovine Maleate (Methergine) 0.2 mg IM Q4H PRN PRN Reason: Bleeding Last Admin: 11/10/19 05:25 Dose: 0.2 mg Documented by: Radha Goldsmith (Tucks) 1 pad TOP ASDIRECTED PRN PRN Reason: Perineal Comfort Measure Discontinued Medications Acetaminophen (Tylenol) 650 mg PO Q4H PRN PRN Reason: Pain (Mild 1-3) and fever Ampicillin Sodium (Ampicillin) 200 gm IV NOW STA Stop: 11/10/19 01:48 Last Admin: 11/10/19 08:22 Dose: Not Given Documented by: Ampicillin Sodium (Ampicillin) Confirm Administered Dose 2 gm IV .STK-MED ONE Stop: 11/10/19 01:46 Last Admin: 11/10/19 01:50 Dose: 2 gm Documented by: Calcium Carbonate/Glycine (Tums) 1,000 mg PO Q2H PRN PRN Reason: Indigestion Oxytocin/Lactated Ringer's (Pitocin In Lr 10 Units/1,000 Ml) 10 unit in 1,000 mls @ 500 mls/hr IV .CONTINUOUS LOUIE Lactated Ringer's (Ringers, Lactated) 1,000 mls @ 100 mls/hr IV ASDIRECTED LOUIE Lidocaine HCl (Xylocaine 1%) 50 ml INJECT ONETIME ONE Stop: 11/10/19 01:37 Last Admin: 11/10/19 08:21 Dose: Not Given Documented by: Nalbuphine HCl (Nubain) 10 mg IVPUSH Q2H PRN PRN Reason: Pain Ondansetron HCl (Zofran) 4 mg IVPUSH Q4H PRN PRN Reason: Nausea/Vomiting Oxytocin (Pitocin) Confirm Administered Dose 10 unit .ROUTE .STK-MED ONE Stop: 11/10/19 02:37 Last Admin: 11/10/19 08:22 Dose: Not Given Documented by: Oxytocin (Pitocin) 10 unit IM ONETIME ONE Stop: 11/10/19 02:42 Last Admin: 11/10/19 02:45 Dose: 10 unit Documented by: Sodium Chloride (Saline Flush) 10 ml FLUSH ASDIRECTED PRN PRN Reason: Keep Vein Open - Infant Interaction Infant Disposition, : [place] in Room with Family Infant Interaction: Holding Feeding: Attempted ; Nursed Fair/Poor, Bottle Fed Support Person: Significant Other - Recovery Exam Fundal Tone: Firm Fundal Level: At Umbilicus Fundal Placement: Midline Lochia Amount: Small Lochia Color: Rubra/Red Perineum Description: Intact, Minimal Bruising/Swelling Episiotomy/Laceration: None Bladder Status: Voiding - Exam General: Alert, Oriented, Cooperative GI/Abdominal Exam: Soft, Non-Tender Extremities: Normal Inspection Skin: Warm, Dry, Intact - Problem List & Annotations (1) No care in current SNOMED Code(s): 593248870 Code(s): O09.30 - SUPRVSN OF PREG W INSUFFICIENT ANTENAT CARE, UNSP TRIMESTER Status: Acute Current Visit: Yes Qualifiers: Trimester: third trimester Qualified Code(s): O09.33 - Supervision of with insufficient care, third trimester (2) Vaginal delivery SNOMED Code(s): 579718932 Code(s): O80 - ENCOUNTER FOR FULL-TERM UNCOMPLICATED DELIVERY Status: Acute Current Visit: No - Problem List Review Problem List Initiated/Reviewed/Updated: Yes - My Orders Last 24 Hours: My Active Orders 11/10/19 06:48 Acetaminophen [TylenoL] 650 mg PO Q4H PRN Benzocaine/Menthol [Dermoplast Pain Relief [place]] See Dose Instructions TOP ASDIRECTED PRN Docusate Sodium [Colace] 100 mg PO BID PRN Ibuprofen [Motrin] 600 mg PO Q6H PRN witch Juice [Tucks] 1 pad TOP ASDIRECTED PRN Heat Therapy [OM.PC] PRN 11/10/19 06:48 Activity as Tolerated [RC] PER UNIT ROUTINE Vital Signs [RC] ,,15,21 Assess Lochia [WOMSER] Per Unit Routine Assess Uterine Involution [WOMSER] Per Unit Routine Breast Pump [WOMSER] Per Unit Routine Ice Therapy [OM.PC] Per Unit Routine Perineal Care [OM.PC] Per Unit Routine Peripheral IV Discontinue [OM.PC] Routine Sitz Bath [OM.PC] Per Unit Routine 11/10/19 Breakfast Regular Diet [DIET] 11/10/19 14:15 Consult to Case Management/Financial Internship [CONS] Routine 11/11/19 06:48 Heat Therapy [OM.PC] PRN - Assessment Assessment:: PPD#1 - Plan Plan:: * Routine cares * Breast feeding * Discharge home tomorrow
--- NOTE | 2019-11-12 08:53 | PCM.DCSUM1 ---
Discharge Summary - Hospital Course Free Text/Narrative:: [place] [facility] LIVE L/D Delivery Note Patient Name: LAURA CARRENO Date of : 89 Patient Status: Inpatient Attending Provider: Mona Gunter Date: 11/10/19 02:41 Initialization Date: 11/10/19 02:41 L & D Note - General Info Date of Service: 11/10/19 - Delivery Note Labor: Spontaneous Delivery Outcome: Livebirth Delivery Method: Spontaneous Vaginal Delivery-Single Delivery Mode: Spontaneous Presentation: Right Occiput Anterior (ANTONIO) Nuchal Cord: None Anesthesia Type: None Amniotic Fluid Description: Clear Episiotomy Type: None Laceration: None Placenta: Intact, Spontaneous Cord: 3 Vessels Estimated Blood Loss: 100 : Bulb Syringe, Stimulated, Warmed, [place] Used, Warmer Used Delivery Comments (Free Text/Narrative):: Patient found to be complete and began pushing. With maternal pushing effort head delivered from an ANTONIO presentation. No nuchal cord present. With gentle downward traction shoulders and body delivered. Infant placed on maternal abdomen. Cord clamped and cut. Cord blood obtained. Placenta allowed time to separate and expelled intact. Inspection of the perineum showed no lacerations - General Info Date of Service: 11/10/19 - Problem List & Annotations (1) No care in current SNOMED Code(s): 523675986 Code(s): O09.30 - SUPRVSN OF PREG W INSUFFICIENT ANTENAT CARE, UNSP TRIMESTER Status: Acute Current Visit: Yes Qualifiers: Trimester: third trimester Qualified Code(s): O09.33 - Supervision of with insufficient care, third trimester (2) Vaginal delivery SNOMED Code(s): 777152119 Code(s): O80 - ENCOUNTER FOR FULL-TERM UNCOMPLICATED DELIVERY Status: Acute Current Visit: No - Problem List Review Problem List Initiated/Reviewed/Updated: Yes - My Orders Last 24 Hours: My Active Orders 11/10/19 01:36 Patient Status [ADT] Routine Activity as Tolerated [RC] PFP Communication Order [RC] ASDIRECTED Non Stress Test [RC] PER UNIT ROUTINE Notify Provider [RC] PFP Notify Provider [RC] PRN Vital Signs [RC] PER UNIT ROUTINE Acetaminophen [TylenoL] 650 mg PO Q4H PRN Calcium Carbonate [Tums] 1,000 mg PO Q2H PRN Nalbuphine [Nubain] 10 mg IVPUSH Q2H PRN Ondansetron [Zofran] 4 mg IVPUSH Q4H PRN Sodium Chloride 0.9% [Saline Flush] 10 ml FLUSH ASDIRECTED PRN Electronic Heart Tones Ext w TOCO [WOMSER] Routine Electronic Heart Tones Internal [WOMSER] Per Unit Routine Peripheral IV Insertion Adult [OM.PC] Routine Resuscitation Status Routine 11/10/19 01:37 Heart Tones [RC] ASDIRECTED Peripheral IV Care [RC] . DIRECTED 11/10/19 01:45 Lactated Ringers [Ringers, Lactated] 1,000 ml IV ASDIRECTED Oxytocin/Lactated Ringers [Pitocin in LR 10 Units/1,000 ML] 10 unit in 1,000 ml IV .CONTINUOUS 11/10/19 01:47 Ampicillin 200 gm IV NOW STA 11/10/19 01:53 HEPATITIS B SURFACE AG [CHEM] Routine HIV RAPID SCREEN RLFX COMFIRM [CHEM] Routine RAPID PLASMA REAGIN,RPR [CHEM] Routine RUBELLA ANTIBODY IGG [CHEM] Stat TYPE AND SCREEN [BBK] Routine 11/10/19 01:59 GROUP B STREP BY PCR [MOLEC] Stat 11/10/19 Breakfast Regular Diet [DIET] - Assessment Assessment:: PPD#0 - Plan Plan:: * Routine cares * Breast feeding * Will assess labs once all return * Discharge home in 2 days HPI Initial Comments: [facility] LIVE L/D Delivery Note Patient Name: LAURA CARRENO Date of : [birth year] Patient Status: Inpatient Attending Provider: Mona Gunter Date: 11/10/19 02:41 Initialization Date: 11/10/19 02:41 L & D Note - General Info Date of Service: 11/10/19 - Delivery Note Labor: Spontaneous Delivery Outcome: Livebirth Delivery Method: Spontaneous Vaginal Delivery-Single Infant Delivery Mode: Spontaneous Presentation: Right Occiput Anterior (ANTONIO) Nuchal Cord: None Anesthesia Type: None Amniotic Fluid Description: Clear Episiotomy Type: None Laceration: None Placenta: Intact, Spontaneous Cord: 3 Vessels Estimated Blood Loss: 100 [place]: Bulb Syringe, Stimulated, Warmed, [place] Used, Warmer Used Delivery Comments (Free Text/Narrative):: Patient found to be complete and began pushing. With maternal pushing effort head delivered from an ANTONIO presentation. No nuchal cord present. With gentle downward traction shoulders and body delivered. placed on maternal abdomen. Cord clamped and cut. Cord blood obtained. Placenta allowed time to separate and expelled intact. Inspection of the perineum showed no lacerations - General Info Date of Service: 11/10/19 - Problem List & Annotations (1) No care in current SNOMED Code(s): 625876718 Code(s): O09.30 - SUPRVSN OF PREG W INSUFFICIENT ANTENAT CARE, UNSP TRIMESTER Status: Acute Current Visit: Yes Qualifiers: Trimester: third trimester Qualified Code(s): O09.33 - Supervision of with insufficient care, third trimester (2) Vaginal delivery SNOMED Code(s): 177831685 Code(s): O80 - ENCOUNTER FOR FULL-TERM UNCOMPLICATED DELIVERY Status: Acute Current Visit: No - Problem List Review Problem List Initiated/Reviewed/Updated: Yes - My Orders Last 24 Hours: My Active Orders 11/10/19 01:36 Patient Status [ADT] Routine Activity as Tolerated [RC] PFP Communication Order [RC] ASDIRECTED Non Stress Test [RC] PER UNIT ROUTINE Notify Provider [RC] PFP Notify Provider [RC] PRN Vital Signs [RC] PER UNIT ROUTINE Acetaminophen [TylenoL] 650 mg PO Q4H PRN Calcium Carbonate [Tums] 1,000 mg PO Q2H PRN Nalbuphine [Nubain] 10 mg IVPUSH Q2H PRN Ondansetron [Zofran] 4 mg IVPUSH Q4H PRN Sodium Chloride 0.9% [Saline Flush] 10 ml FLUSH ASDIRECTED PRN Electronic Heart Tones Ext w TOCO [WOMSER] Routine Electronic Heart Tones Internal [WOMSER] Per Unit Routine Peripheral IV Insertion Adult [OM.PC] Routine Resuscitation Status Routine 11/10/19 01:37 Heart Tones [RC] ASDIRECTED Peripheral IV Care [RC] . DIRECTED 11/10/19 01:45 Lactated Ringers [Ringers, Lactated] 1,000 ml IV ASDIRECTED Oxytocin/Lactated Ringers [Pitocin in LR 10 Units/1,000 ML] 10 unit in 1,000 ml IV .CONTINUOUS 11/10/19 01:47 Ampicillin 200 gm IV NOW STA 11/10/19 01:53 HEPATITIS B SURFACE AG [CHEM] Routine HIV RAPID SCREEN RLFX COMFIRM [CHEM] Routine RAPID PLASMA REAGIN,RPR [CHEM] Routine RUBELLA ANTIBODY IGG [CHEM] Stat TYPE AND SCREEN [BBK] Routine 11/10/19 01:59 GROUP B STREP BY PCR [MOLEC] Stat 11/10/19 Breakfast Regular Diet [DIET] - Assessment Assessment:: PPD#0 - Plan Plan:: * Routine cares * Breast feeding * Will assess labs once all return * Discharge home in 2 days Brief History: [facility] LIVE . L/D Delivery Note. Patient Name: LAURA CARRENO edical Record Number: [id number]. Date of : [birth year]Patient Status: Inpatient. Attending Provider: Mona Gunterunt Number: [id number]. Date: 11/10/19 02:41Initialization Date: 11/10/19 02:41. L & D Note. - General Info. Date of Service: 11/10/19. - Delivery Note. Labor: Spontaneous. Delivery Outcome: Livebirth. Delivery Method: Spontaneous Vaginal Delivery-Single. Infant Delivery Mode: Spontaneous. Presentation: Right Occiput Anterior (ANTONIO). Nuchal Cord: None. Anesthesia Type: None. Amniotic Fluid Description: Clear. Episiotomy Type: None. L aceration: None. Placenta: Intact, Spontaneous. Cord: 3 Vessels. Estimated Blood Loss: 100. : Bulb Syringe, Stimulated, Warmed, [place] Used, Warmer Used. Delivery Comments (Free Text/Narrative):: Patient found to be complete and began pushing. With maternal pushing effort head delivered from an ANTONIO presentation. No nuchal cord present. With gentle downward traction shoulders and body delivered. Infant placed on maternal abdomen. Cord clamped and cut. Cord blood obtained. Placenta allowed time to separate and expelled intact. Inspection of the perineum showed no lacerations. - General Info. Date of Service: 11/10/19. - Problem List & Annotations. (1) No care in current . SNOMED Code(s): 084506777. Code(s): O09.30 - SUPRVSN OF PREG W INSUFFICIENT ANTENAT CARE, UNSP TRIMESTER Status: Acute Current Visit: Yes. Qualifiers: Trimester: third trimester Qualified Code(s): O09.33 - Supervision of with insufficient care, third trimester. (2) Vaginal delivery. SNOMED Code(s): 017037523. Code(s): O80 - ENCOUNTER FOR FULL-TERM UNCOMPLICATED DELIVERY Status: Acute Current Visit: No. - Problem List Review. Problem List Initiated/Reviewed/Updated: Yes. - My Orders. Last 24 Hours: My Active Orders. 11/10/19 01:36. Patient Status [ADT] Routine. Activity as Tolerated [RC] PFP. Communication Order [RC] ASDIRECTED. Non Stress Test [RC] PER UNIT ROUTINE. Notify Provider [RC] PFP. Notify Provider [RC] PRN. Vital Signs [RC] PER UNIT ROUTINE. Acetaminophen [TylenoL] 650 mg PO Q4H PRN. Calcium Carbonate [Tums] 1,000 mg PO Q2H PRN. Nalbuphine [Nubain] 10 mg IVPUSH Q2H PRN. Ondansetron [Zofran] 4 mg IVPUSH Q4H PRN. Sodium Chloride 0.9% [Saline Flush] 10 ml FLUSH ASDIRECTED PRN. Electronic Heart Tones Ext w TOCO [WOMSER] Routine. Electronic Heart Tones Internal [WOMSER] Per Unit Routine. Peripheral IV Insertion Adult [OM.PC] Routine. Resuscitation Status Routine. 11/10/19 01:37. Heart Tones [RC] ASDIRECTED. Peripheral IV Care [RC] . DIRECTED. 11/10/19 01:45. Lactated Ringers [Ringers, Lactated] 1,000 ml IV ASDIRECTED. Oxytocin/Lactated Ringers [Pitocin in LR 10 Units/1,000 ML] 10 unit in 1,000 ml IV .CONTINUOUS. 11/10/19 01:47. Ampicillin 200 gm IV NOW STA. 11/10/19 01:53. HEPATITIS B SURFACE AG [CHEM] Routine. HIV RAPID SCREEN RLFX COMFIRM [CHEM] Routine. RAPID PLASMA REAGIN,RPR [CHEM] Routine. RUBELLA ANTIBODY IGG [CHEM] Stat. TYPE AND SCREEN [BBK] Routine. 11/10/19 01:59. GROUP B STREP BY PCR [MOLEC] Stat. 11/10/19 Breakfast. Regular Diet [DIET]. - Assessment. Assessment:: PPD#0. - Plan. Plan:: Routine cares. Breast feeding. Will assess labs once all return. Discharge home in 2 days Diagnosis: Stroke: No - Discharge Data Discharge Date: 11/12/19 Discharge Disposition: Home, Self-Care 01 Condition: Good - Referral to Home Health Primary Care Physician: Mona Gunter MD - Discharge Diagnosis/Problem(s) (1) Vaginal delivery SNOMED Code(s): 880894034 ICD Code: O80 - ENCOUNTER FOR FULL-TERM UNCOMPLICATED DELIVERY Status: Acute Current Visit: No - Patient Summary/Data Complications: none Consults: Consultations 11/10/19 14:15 Consult to Case Management/Bandage Wrapping Machine Operator [CONS] Routine Hospital Course: uneventful - Patient Instructions Diet: Usual Diet as Tolerated Driving: Do Not Drive (48 hours) Showering/Bathing: May Shower Notify Provider of: Fever, Increased Pain, Swelling and Redness, Drainage, Nausea and/or Vomiting - Discharge Plan *PRESCRIPTION DRUG MONITORING PROGRAM REVIEWED*: Not Applicable *COPY OF PRESCRIPTION DRUG MONITORING REPORT IN PATIENT GEOFFREY: Not Applicable Home Medications: Home Meds Acetaminophen [Tylenol] 650 mg PO Q6H PRN tablet 11/12/19 [Rx] Benzocaine/Menthol [Dermoplast Pain Relief [place]] 1 spray TOP ASDIRECTED PRN canister 11/12/19 [Rx] Docusate Sodium [Colace] 100 mg PO BID PRN cap 11/12/19 [Rx] Ibuprofen [Motrin] 600 mg PO Q6H PRN tablet 11/12/19 [Rx] witch Juice [Tucks] 1 pad TOP ASDIRECTED PRN pad 11/12/19 [Rx] Referrals: Mona Gunter MD [Primary Care Provider] - (Patient to call Thursday for appointment to see Dr. Gunter probably in 2 weeks.) - Discharge Summary/Plan Comment DC Time >30 min.: No - Patient Data Vitals - Most Recent: Last Vital Signs Temp 98.4 F 11/12/19 02:45 Pulse 72 11/12/19 02:45 Resp 16 11/12/19 02:45 BP 103/47 L 11/12/19 02:45 Pulse Ox 99 11/12/19 02:45 Weight - Most Recent: 146 lb Lab Results - Last 24 hrs: Laboratory Results - last 24 hr 11/10/19 Range/Units 01:53 Hep Bs Antigen Nonreactive (NONREACTIVE) Rubella IgG Antibody Nonreactive (neg) (REACTIVE) Med Orders - Current: Current Medications Acetaminophen (Tylenol) 650 mg PO Q4H PRN PRN Reason: mild pain or fever Benzocaine/Menthol (Dermoplast Pain Relief [place]) 0 gm TOP ASDIRECTED PRN PRN Reason: Perineal Comfort Measure Docusate Sodium (Colace) 100 mg PO BID PRN PRN Reason: Constipation Last Admin: 11/11/19 20:50 Dose: 100 mg Documented by: Ibuprofen (Motrin) 600 mg PO Q6H PRN PRN Reason: Mild pain or fever Last Admin: 11/10/19 19:56 Dose: 600 mg Documented by: Methylergonovine Maleate (Methergine) 0.2 mg IM Q4H PRN PRN Reason: Bleeding Last Admin: 11/10/19 05:25 Dose: 0.2 mg Documented [facility]: [email or web address] 1 pad TOP ASDIRECTED PRN PRN Reason: Perineal Comfort Measure Discontinued Medications Acetaminophen (Tylenol) 650 mg PO Q4H PRN PRN Reason: Pain (Mild 1-3) and fever Ampicillin Sodium (Ampicillin) 200 gm IV NOW STA Stop: 11/10/19 01:48 Last Admin: 11/10/19 08:22 Dose: Not Given Documented by: Ampicillin Sodium (Ampicillin) Confirm Administered Dose 2 gm IV .STK-MED ONE Stop: 11/10/19 01:46 Last Admin: 11/10/19 01:50 Dose: 2 gm Documented by: Calcium Carbonate/Glycine (Tums) 1,000 mg PO Q2H PRN PRN Reason: Indigestion Oxytocin/Lactated Ringer's (Pitocin In Lr 10 Units/1,000 Ml) 10 unit in 1,000 mls @ 500 mls/hr IV .CONTINUOUS LOUIE Lactated Ringer's (Ringers, Lactated) 1,000 mls @ 100 mls/hr IV ASDIRECTED LOUIE Lidocaine HCl (Xylocaine 1%) 50 ml INJECT ONETIME ONE Stop: 11/10/19 01:37 Last Admin: 11/10/19 08:21 Dose: Not Given Documented by: Nalbuphine HCl (Nubain) 10 mg IVPUSH Q2H PRN PRN Reason: Pain Ondansetron HCl (Zofran) 4 mg IVPUSH Q4H PRN PRN Reason: Nausea/Vomiting Oxytocin (Pitocin) Confirm Administered Dose 10 unit .ROUTE .STK-MED ONE Stop: 11/10/19 02:37 Last Admin: 11/10/19 08:22 Dose: Not Given Documented by: Oxytocin (Pitocin) 10 unit IM ONETIME ONE Stop: 11/10/19 02:42 Last Admin: 11/10/19 02:45 Dose: 10 unit Documented by: Sodium Chloride (Saline Flush) 10 ml FLUSH ASDIRECTED PRN PRN Reason: Keep Vein Open
[2019-11-12] MEDS ORDERED: Measles, Mumps & Rubella Vaccine 0.5 ML SDV SUBCUT ONE (09:30)
[2019-11-12 12:08] VITALS: BP 106/69; PULSE 69
== END 2019-11-12 10:45 | disposition home or self-care (01) | DRG 807 ==
LOC: JD.OBCHECK 01:15 → JD.OB 01:23 → EDSTATUS 01:26 → JD.OBCHECK 01:37 → JD.OB 01:38 → OBSVTOIN 02:29 → JD.OB 02:30
PROVIDERS: ADMIT Obstetrics & Gynecology; ATTEND Obstetrics & Gynecology
PROC: 10E0XZZ Delivery of Products of Conception, External Approach (ICD-10-PCS; principal; 2019-11-10)
DX: O99.52 Diseases of the respiratory system complicating childbirth (principal); Z37.0 Single live birth; J45.909 Unspecified asthma, uncomplicated; Z3A.37 37 weeks gestation of pregnancy; Z20.828 Contact with and (suspected) exposure to other viral communicable diseases
CPT/HCPCS: 36415; 59025; 59409; 85025; 86592; 86762; 86850; 86900; 86901; 87340; 90471; 90707; A9270-GY; G0433; J0290; J2210; J2590; U0002

== ENCOUNTER 2022-01-12 01:37 | Emergency (ER) | payer MEDICAID ==
[~2022-01-12 01:37] MED LIST: Nitrofurantoin Monohydrate/Macrocrystalline 100 MG Cap PO STA
[2022-01-12] MEDS ORDERED: Phenazopyridine 95 MG Tab PO STA (01:38)
[2022-01-12 01:51] VITALS: BP 125/83; PULSE 103
== END 2022-01-12 01:55 | disposition home or self-care (01) ==
LOC: JD.ED 01:37
DX: N30.90 Cystitis, unspecified without hematuria (principal); F17.210 Nicotine dependence, cigarettes, uncomplicated; E66.9 Obesity, unspecified; Z68.32 Body mass index [BMI] 32.0-32.9, adult
CPT/HCPCS: 81001; 81025; 87086; 99284; A9270